=== PATIENT | female | born 1995 | race American Indian/Alaskan Native ===

== ENCOUNTER 2021-02-07 20:47 | Emergency (ER) | payer OTHER ==
[2021-02-07 22:15] LABS: HCG Qualitative,Urine Positive (Negative)
--- NOTE | 2021-02-07 23:05 | Emergency Department Report ---
ED Female HPI - General Chief complaint: Nausea/Vomiting/Diarrhea Stated complaint: NAUSEA Time Seen by Provider: 02/07/21 21:35 Source: patient Mode of arrival: Ambulatory Limitations: No Limitations - History of Present Illness Initial comments: 25-year-old female is emerged from complaining of nausea and vomiting/morning sickness at discovering her presents emerge department seeking morning sickness medication to help alleviate her symptoms. Reports no vaginal bleeding, no pelvic pain, no fever, chills, sweats. No no chest pain, palpitations, no hemoptysis no hematemesis hematochezia. She denies a follow-up with with [facility] but doing to see them in the very near near future. -: Gradual Radiation: non-radiating Severity: mild Quality: dull - Related Data Previous Rx's Medication Instructions Recorded Last Taken Type Doxylamine Succinate/Vit B6 1 each PO BID #30 tablet. 02/07/21 Unknown Rx [Diana Blackburn 10-10 mg Tablet] 21/Iron Fu/Folic Acid 1 each PO DAILY #30 tablet 02/07/21 Unknown Rx [ Complete Caplet] Allergies Allergy/AdvReac Type Severity Reaction Status Date / Time No Known Allergies Allergy Unverified 02/07/21 21:02 ED Review of Systems ROS: Stated complaint: NAUSEA Other details as noted in HPI Comment: All other systems reviewed and negative ED Past Medical Hx - Past Medical History Previous Medical History?: No - Surgical History Past Surgical History?: No - Medications Home Medications: Home Medications Medication Instructions Recorded Confirmed Last Taken Type Doxylamine Succinate/Vit B6 1 each PO BID #30 tablet. 02/07/21 Unknown Rx [Diana Blackburn 10-10 mg Tablet] 21/Iron Fu/Folic Acid 1 each PO DAILY #30 tablet 02/07/21 Unknown Rx [ Complete Caplet] ED Physical Exam - General Limitations: No Limitations General appearance: alert, in no apparent distress - Head Head exam: Present: atraumatic, normocephalic - Eye Eye exam: Present: normal appearance - ENT ENT exam: Present: mucous membranes moist - Neck Neck exam: Present: normal inspection - Respiratory Respiratory exam: Present: normal lung sounds bilaterally. Absent: respiratory distress - Cardiovascular Cardiovascular Exam: Present: regular rate, normal rhythm. Absent: systolic murmur, diastolic murmur, rubs, gallop - GI/Abdominal GI/Abdominal exam: Present: soft, normal bowel sounds - Extremities Exam Extremities exam: Present: normal inspection - Back Exam Back exam: Present: normal inspection - Neurological Exam Neurological exam: Present: alert, oriented X3 - Psychiatric Psychiatric exam: Present: normal affect, normal mood - Skin Skin exam: Present: warm, dry, intact, normal color. Absent: rash ED Course Vital Signs 02/07/21 20:51 Temperature 98.3 F Pulse Rate 75 Respiratory 16 Rate Blood Pressure 130/82 [Right] O2 Sat by Pulse 99 Oximetry ED Medical Decision Making - Medical Decision Making 25-year-old -[place] female presents emerged department complaining of morning sickness seeking medications for symptom relief. She is having no signs of any urgent or emergent medical conditions and states to follow-up with [facility] she will be started on some antinausea medication in the form of Diclegis Critical care attestation.: If time is entered above; I have spent that time in minutes in the direct care of this critically ill patient, excluding procedure time. ED Disposition Clinical Impression: related nausea and vomiting, antepartum Disposition: HOME / SELF CARE / HOMELESS Is pt being admited?: No Does the pt Need Aspirin: No Condition: Stable Instructions: Nausea and Vomiting, Adult, Hyperemesis Gravidarum, Morning Sickness Prescriptions: Doxylamine Succinate/Vit B6 [Diana Blackburn 10-10 mg Tablet] 1 each PO BID #30 tablet. 21/Iron Fu/Folic Acid [ Complete Caplet] 1 each PO DAILY #30 tablet Referrals: PRIMARY CAREMD [Primary Care Provider] - 3-5 Days [facility] [Provider Group] - 3-5 Days
[2021-02-07 23:33] VITALS: BP 122/75
== END 2021-02-07 23:35 | disposition home or self-care (01) ==
LOC: ED 20:47
DX: O21.9 Vomiting of pregnancy, unspecified (principal); Z3A.09 9 weeks gestation of pregnancy
CPT/HCPCS: 81025; 99283

== ENCOUNTER 2021-09-09 05:25 | Inpatient (IN) | payer MEDICAID, OTHER ==
[2021-09-09] MEDS ORDERED: METHYLERGONOVINE MALEATE 0.2 MG/ML VIAL IM PRN (06:37)
[2021-09-09] MEDS ORDERED: ONDANSETRON 4 MG/2 ML INJ IV PRN (06:37)
[2021-09-09] MEDS ORDERED: TERBUTALINE 1 MG/1 ML INJ SUB-Q PRN (06:37)
[2021-09-09] MEDS ORDERED: BUTORPHANOL 2 MG/1 ML INJ IV PRN ×2 (06:37→09:00)
[2021-09-09] MEDS ORDERED: miSOPROStol 200 MCG TAB PR PRN (06:37)
[2021-09-09] MEDS ORDERED: OXYTOCIN 10 UNIT/1 ML INJ IM PRN (06:37)
[2021-09-09] MEDS ORDERED: ePHEDrine SULFATE 50 MG/1 ML INJ IV PRN (06:37)
[2021-09-09] MEDS ORDERED: ACETAMINOPHEN 325 MG TAB PO PRN (06:37)
[2021-09-09] MEDS ORDERED: NalbUPHINE 10 MG/1 ML INJ IV PRN (06:37)
[2021-09-09] MEDS ORDERED: CARBOPROST TROMETHAMINE 250 MCG/1 ML INJ IM PRN (06:37)
[2021-09-09] MEDS ORDERED: LIDOCAINE (2%) 20 MG/1 ML VIAL 20 ML MDV INFILTRATI ONE (06:37)
[2021-09-09] MEDS ORDERED: LOPERAMIDE 2 MG CAP PO PRN (06:37)
[2021-09-09] MEDS ORDERED: LACTATED RINGERS 1,000 ML IV SCH (06:45)
[2021-09-09] MEDS ORDERED: OXYTOCIN DRIP 30 UNITS/500 ML BAG IV SCH ×2 (07:00)
[2021-09-09 07:11] LABS: Hematocrit 36.3 % (30.3-42.9); Hemoglobin 11.8 gm/dl (10.1-14.3); Mean Corpuscular HGB Conc 32 % (30-34); Mean Corpuscular Volume 87 fl (79-97); Platelet Count 184 K/mm3 (140-440); Red Blood Count 4.15 M/mm3 (3.65-5.03); Red Cell Distribution Width 13.5 % (13.2-15.2)
--- NOTE | 2021-09-09 07:33 | History and Physical Report ---
History of Present Illness Date of examination: 09/09/21 Date of admission: 09/09/2021 Chief complaint: Intense Labor Pains History of present illness: Care at [facility]; Partial record present (only labs). Patient states course was uncomplicated. Past History Past Medical History: no pertinent history Past Surgical History: no surgical history Family/Genetic History: hypertension (MGM) Social history: no significant social history, other () - Obstetrical History Expected Date of Delivery: 09/07/21 Actual Gestation: 40 Week(s) 2 Day(s) : 2 Para: 1 Hx # Term Pregnancies: 1 Number of Living Children: 1 #1 Infant Gender: Male year: 2[age][birth year] Birthweight: 3 kg Method of Delivery: Vaginal Medications and Allergies Allergies Allergy/AdvReac Type Severity Reaction Status Date / Time No Known Allergies Allergy Verified 09/09/21 06:42 Home Medications Medication Instructions Recorded Confirmed Last Taken Type Doxylamine Succinate/Vit B6 1 each PO BID #30 tablet. 02/07/21 Unknown Rx [Diana Blackburn 10-10 mg Tablet] 21/Iron Fu/Folic Acid 1 each PO DAILY #30 tablet 02/07/21 Unknown Rx [ Complete Caplet] Active Meds: Active Medications Acetaminophen (Acetaminophen 325 Mg Tab) 650 mg PO Q4H PRN PRN Reason: Pain, Mild (1-3) Butorphanol Tartrate (Butorphanol 2 Mg/1 Ml Inj) 1 mg IV Q2H PRN PRN Reason: Pain, Moderate(4-6) LABOR PAIN Carboprost Tromethamine (Carboprost Tromethamine 250 Mcg/1 Ml Inj) 250 mcg IM ONCE PRN PRN Reason: Uterine Bleeding Ephedrine Sulfate (Ephedrine Sulfate 50 Mg/1 Ml Inj) 10 mg IV Q2M PRN PRN Reason: Hypotension Oxytocin/Sodium Chloride (Pitocin/Ns 30 Unit/500ml) 30 units in 500 mls @ 2 mls/hr IV TITR MOON; Protocol Lactated Ringer's (Lactated Ringers) 1,000 mls @ 125 mls/hr IV DIRECT MOON Oxytocin/Sodium Chloride (Pitocin/Ns 30 Unit/500ml) 30 units in 500 mls @ 40 mls/hr IV TITR MOON; Protocol Loperamide HCl (Loperamide 2 Mg Cap) 2 mg PO ONCE PRN PRN Reason: give with Hemabate Methylergonovine Maleate (Methylergonovine Maleate 0.2 Mg/Ml Vial) 0.2 mg IM ONCE PRN PRN Reason: Uterine Bleeding Mineral Oil (Mineral Oil 30 Ml Oral Liqd) 30 ml PO QHS PRN PRN Reason: Constipation Misoprostol (Misoprostol 200 Mcg Tab) 800 mcg VT ONCE PRN PRN Reason: Uterine Bleeding Nalbuphine HCl (Nalbuphine 10 Mg/1 Ml Inj) 10 mg IV Q2H PRN PRN Reason: Pain, Moderate (4-6) Ondansetron HCl (Ondansetron 4 Mg/2 Ml Inj) 4 mg IV Q8H PRN PRN Reason: Nausea And Vomiting Oxytocin (Oxytocin 10 Unit/1 Ml Inj) 10 unit IM ONCE PRN PRN Reason: Uterine Bleeding Terbutaline Sulfate (Terbutaline 1 Mg/1 Ml Inj) 0.25 mg SUB-Q ONCE PRN PRN Reason: Hyperstimulation/Hypertonicity Review of Systems All systems: negative - Vital Signs Vital signs: Vital Signs Pulse Pulse Ox 96 H 96 09/09/21 05:46 09/09/21 05:46 Temp Pulse Resp BP Pulse Ox 98.5 F 107 H 16 133/85 99 09/09/21 07:14 09/09/21 07:25 09/09/21 05:49 09/09/21 07:13 09/09/21 07:25 - Physical Exam Breasts: Positive: normal Cardiovascular: Regular rate Lungs: Positive: Clear to auscultation, Normal air movement Abdomen: Positive: normal appearance, soft, normal bowel sounds Genitourinary (Female): Positive: normal external genitalia, normal perenium Vagina: Positive: normal moisture Uterus: Positive: enlarged Anus/Rectum: Positive: normal perianal skin Extremities: Positive: normal - Obstetrical FHR: category 1 Uterine Contraction Monitor Mode: External Cervical Dilatation: 7 (Moderate amount of clear fluid upon AROM at 0714) Cervical Effacement Percentage: 90 station: -1 Uterine Contraction Pattern: Regular Uterine Tone Measurement Phase: Resting Uterine Contraction Intensity: Moderate Results Result Diagrams: 09/09/21 06:44 All other labs normal. Assessment and Plan A: IUP @ 40 2/7 Weeks Category I Tracing Active Labor GBS Negative P: Admit to L&D Per Routine Orders AROM Anticipate
[2021-09-09] MEDS ORDERED: LIDOCAINE MPF (2%) 20 MG/1 ML VIAL 5 ML ONE ×2 (10:30→10:51)
[2021-09-09] MEDS: MINERAL OIL 30 ML ORAL LIQD PO PRN ×2 (10:43→11:06)
--- NOTE | 2021-09-09 11:24 | Procedure Note ---
OB Delivery Note - Delivery Date of Delivery: 09/09/21 (1046) Surgeon: CHA PAUL Estimated blood loss: other (250) - Vaginal Delivery presentation: vertex Delivery position: OA Intrapartum events: none Delivery induction: none Delivery augmentation: rupture of membranes, pitocin Delivery monitor: external FHT, external uterine Route of delivery: Delivery placenta: spontaneous Delivery cord: 3 umbilical vessels Episiotomy: none Delivery laceration: 2nd degree Delivery repair: vicryl Anesthesia: local Delivery comments: of a live 7'11 male over a 2nd degree perineal laceration under IV pain control with Apgars of 8 and 9 at 1046 on 09/09/2021. Infant directly to maternal abd/chest, skin to skin contact. Perineal laceration repaired with 2-0 Vicryl on a SH under local 2% Lidocaine. Spontaneous delivery of placenta complete and intact with Mccurdy side presenting at 1057. Fundus is firm and midline located 4 below the U. Lochia is scant. Delayed cord clamping and cutting; Cord cut by the Father of the Baby. Cord blood collected; placenta discarded. - A at 1 minute: 8 at 5 minutes: 9 Gender: Male (7'11)
[2021-09-09] MEDS ORDERED: HYDROcodone/ACETAMINOPHEN 5-325 MG TAB PO PRN (12:00)
[2021-09-09] MEDS ORDERED: WITCH HAZEL/ GLYCERIN PAD TP PRN (12:00)
[2021-09-09] MEDS ORDERED: LANOLIN/ZINC/DIMETHICONE (LANSINOH) 7 GM TP PRN (12:00)
[2021-09-09] MEDS ORDERED: diphenhydrAMINE 25 MG CAP PO PRN (12:00)
[2021-09-10 01:09] LABS: Hematocrit 33.2 % (30.3-42.9)
[2021-09-10] MEDS: IBUPROFEN 800 MG TAB PO SCH ×2 (03:19→11:09)
--- NOTE | 2021-09-10 11:26 | Discharge Summary ---
Providers - Providers Date of Admission: 09/09/21 05:26 Date of discharge: 09/10/21 Attending physician: KARLY DAVIS [facility] Primary care physician: KARLY DAVIS Hospitalization Reason for admission: active labor Delivery: Episiotomy: none Laceration: 2nd degree (perineal) Other procedures: none complications: none Discharge diagnosis: IUP at term delivered [place] baby: male Condition at discharge: Good Disposition: 01 HOME / SELF CARE / HOMELESS Plan - Discharge Medications Prescriptions: Ibuprofen [Motrin 800 MG tab] 800 mg PO Q8HR #30 tablet - Provider Discharge Summary Additional instructions: [] Smoking cessation referral if applicable(refer to patient education folder for contact #) [] Refer to [facility]'s [facility] Booklet Call your doctor immediately for: * Fever > 100.5 * Heavy vaginal bleeding ( >1 pad per hour) * Severe persistent headache * Shortness of breath * Reddened, hot, painful area to leg or breast * Drainage or odor from incision. * Keep incision clean and dry at all times and follow doctor's instructions regarding bathing/showering - Follow up plan Follow up: KARLY DAVIS MD [Primary Care Provider] - 6 Weeks
[2021-09-10] MEDS ORDERED: PRENATAL VIT27-FE FUMARATE-FOLIC ACID VIT TAB PO SCH (12:00)
[2021-09-10 16:23] VITALS: BP 117/64
== END 2021-09-10 20:20 | disposition home or self-care (01) | DRG 807 ==
LOC: TRG 05:25 → LD 05:26 → APU 05:38 → LD 07:02 → TRG 11:23 → OB 20:17
PROVIDERS: ADMIT Obstetrics & Gynecology; ATTEND Obstetrics & Gynecology
PROC: 10E0XZZ Delivery of Products of Conception, External Approach (ICD-10-PCS; principal; 2021-09-09)
PROC: 0KQM0ZZ Repair Perineum Muscle, Open Approach (ICD-10-PCS; 2021-09-09)
DX: O70.1 Second degree perineal laceration during delivery (principal); Z37.0 Single live birth; Z3A.40 40 weeks gestation of pregnancy
CPT/HCPCS: 36415; 59025; 85014; 85018; 85027; 86592; 86850; 86900; 86901; 96360; 96361; 96374; G0378; J0595; J2590; J7120